=== PATIENT | female | born 1975 | race Caucasian/White ===

== ENCOUNTER 2019-08-25 22:25 | Emergency (ER) | payer OTHER ==
--- NOTE | 2019-08-25 23:01 | EDM.PDOC ---
ED HPI GENERAL MEDICAL PROBLEM - General Chief Complaint: Abdominal Pain Stated Complaint: ABD PAIN LT SIDE Time Seen by Provider: 08/25/19 22:45 Source of Information: Reports: Patient, RN History Limitations: Reports: No Limitations - History of Present Illness INITIAL COMMENTS - FREE TEXT/NARRATIVE: 44 yo female presents with about 3 hrs of LLQ abdominal pain. Pain was an 8/10 en route to the hospital, is now a 4/10. No fever. Normal BM's. No hematuria or dysuria. Has had C-sections x 2 and removal of a uterine cyst in the past as her only surgeries. Eating tonight didn't change her pain. Walking seems to make it worse, but not coughing. 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) left lower abd pain Pain Score (Numeric/FACES): 8 - Related Data Allergies Allergy/AdvReac Type Severity Reaction Status Date / Time No Known Allergies Allergy Verified 08/25/19 22:40 Home Meds: Home Meds Albuterol Sulfate [Albuterol Sulfate Hfa] 1 - 2 inh INH ASDIRECTED PRN 08/25/19 [History] Montelukast Sodium 10 mg PO BEDTIME 08/25/19 [History] Past Medical History HEENT History: Reports: Impaired Vision, Other (See Below) Other HEENT History: contacts Respiratory History: Reports: Asthma 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: , 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 (See Below) Other 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'S ASSISTANT History: cyst on ovaries - Infectious Disease History Infectious Disease History: Reports: Chicken Pox - Past Surgical History HEENT Surgical History: Reports: Tonsillectomy Female Surgical History: Reports: Breast Implant, Section, Cystectomy, Other (See Below) Other Female Surgeries/Procedures: 2007 cyst removed Social & Family History - Tobacco Use Smoking Status *Q: Never Smoker - Caffeine Use Caffeine Use: Reports: Coffee - Recreational Drug Use Recreational Drug Use: Yes Drug Use in Last 12 Months: Yes Recreational Drug Type: Reports: Marijuana/Hashish Recreational Drug Use Frequency: Rarely ED ROS GENERAL - Review of Systems Review Of Systems: See Below Constitutional: Reports: No Symptoms HEENT: Reports: No Symptoms Respiratory: Reports: No Symptoms Cardiovascular: Reports: No Symptoms GI/Abdominal: Reports: Abdominal Pain (LLQ). Denies: Black Stool, Bloody Stool, Constipation, Diarrhea, Decreased Appetite, Distension, Flatus, Hematemesis, Hematochezia, Melena, Nausea, Vomiting : Reports: No Symptoms Musculoskeletal: Reports: No Symptoms Skin: Reports: No Symptoms Neurological: Reports: No Symptoms Psychiatric: Reports: No Symptoms ED EXAM, GI/ABD - Physical Exam Exam: See Below Exam Limited By: No Limitations General Appearance: Alert, WD/WN, No Apparent Distress Eyes: Bilateral: Normal Appearance Ears: Normal External Exam, Normal Canal, Hearing Grossly Normal Nose: Normal Inspection, No Blood Throat/Mouth: Normal Inspection, Normal Lips, Normal Oropharynx, Normal Voice, No Airway Compromise Head: Atraumatic, Normocephalic Neck: Normal Inspection Respiratory/Chest: No Respiratory Distress, Lungs Clear, Normal Breath Sounds, No Accessory Muscle Use Cardiovascular: Regular Rate, Rhythm, No Edema GI/Abdominal Exam: Normal Bowel Sounds, Soft, Non-Tender, No Distention, Other (Pain is not worse via my exam). No: Distended, Guarding, Rigid, Rebound, Tender Back Exam: Normal Inspection. No: CVA Tenderness (R), CVA Tenderness (L) Extremities: Normal Inspection, Normal Range of Motion, Non-Tender, No Pedal Edema. No: Pedal Edema Neurological: Alert, Oriented, CN II-XII Intact, Normal Cognition, No Motor/Sensory Deficits Psychiatric: Normal Affect, Normal Mood Skin Exam: Warm, Dry, Intact, Normal Color, No Rash Course - Vital Signs Last Recorded V/S: Last Vital Signs Temp 36.1 C 08/25/19 22:37 Pulse 73 08/25/19 22:37 Resp 18 08/25/19 22:37 BP 119/80 08/25/19 22:37 Pulse Ox 100 08/25/19 22:37 - Orders/Labs/Meds Labs: Laboratory Tests 08/25/19 Range/Units 23:07 Urine Color Yellow (YELLOW) Urine Appearance Clear (CLEAR) Urine pH 6.0 (5.0-8.0) Ur Specific [place] 1.015 (1.008-1.030) Urine Protein Negative (NEGATIVE) mg/dL Urine Glucose (UA) Negative (NEGATIVE) mg/dL Urine Ketones Negative (NEGATIVE) mg/dL Urine Occult Blood Trace-lysed H (NEGATIVE) Urine Nitrite Negative (NEGATIVE) Urine Bilirubin Negative (NEGATIVE) Urine Urobilinogen 0.2 (0.2-1.0) EU/dL Ur Leukocyte Esterase Negative (NEGATIVE) Urine RBC 0-5 (0-5) Urine WBC 0-5 (0-5) Ur Epithelial Cells Not seen Amorphous Sediment Not seen Urine Bacteria Rare Urine Mucus Not seen Meds: Medications Discontinued Medications Generic Name Dose Route Start Last Admin Trade Name Freq PRN Reason Stop Dose Admin Acetaminophen 1,000 mg 08/25/19 23:08 08/25/19 23:13 Tylenol Extra Strength PO 08/25/19 23:09 1,000 mg ONETIME ONE Administration - Radiology Interpretation Free Text/Narrative:: IMPRESSION: No evidence for diverticulitis. No urinary tract stones or hydronephrosis. No definitive findings to explain the patient`s left lower quadrant pain. Dictated by Jhonny Guzmán MD @ 08/26/2019 12:35:[address] abd/pelvis without contrast- CT Results Date: 08/25/19 CT Results Time: 00:36 Departure - Departure Time of Disposition: 00:45 Disposition: Home, Self-Care 01 Condition: Fair Clinical Impression: Nonspecific abdominal pain - Discharge Information *PRESCRIPTION DRUG MONITORING PROGRAM REVIEWED*: Not Applicable *COPY OF PRESCRIPTION DRUG MONITORING REPORT IN PATIENT SANDRO: Not Applicable Instructions: Abdominal Pain, Adult, [id number] Referrals: Milagros Watson PA [Primary Care Provider] - Forms: ED Department Discharge Additional Instructions: Take acetaminophen 1000 mg every 6 hrs as needed for pain relief. Add simethicone 160 mg every 4 hrs as needed for pain relief. Recheck if pain is worse or fever or bleeding occurs. Sepsis Event Note (ED) - Evaluation Sepsis Screening Result: No Definite Risk - Focused Exam Vital Signs: Vital Signs Temp Pulse Resp BP Pulse Ox 08/25/19 22:37 36.1 C 73 18 119/80 100 08/25/19 22:36 36.1 C 73 18 119/80 100
[2019-08-25] MEDS ORDERED: Acetaminophen 500 MG Tab PO ONE (23:08)
--- NOTE | 2019-08-26 00:36 | CRLCT ---
INDICATION: Left lower quadrant pain TECHNIQUE: CT abdomen and pelvis without contrast. COMPARISON: None FINDINGS: Lower chest: Unremarkable. Liver: Unremarkable. Spleen: Unremarkable. Pancreas: Unremarkable. Gallbladder and bile ducts: Unremarkable. Kidneys: Unremarkable. No kidney or ureteral stones and no hydronephrosis. Adrenal glands: Unremarkable. GI tract: Unremarkable. Appendix is normal. Vascular structures: Unremarkable. Lymph nodes: Unremarkable. Miscellaneous: Unremarkable. No free air or significant free fluid. Pelvic Organs: Unremarkable. Bones: Unremarkable for age. IMPRESSION: No evidence for diverticulitis. No urinary tract stones or hydronephrosis. No definitive findings to explain the patient`s left lower quadrant pain. Dictated by Jhonny Guzmán MD @ 08/26/2019 12:35:21 AM Please note that all CT scans at this facility use dose modulation, iterative reconstruction, and/or weight-based dosing when appropriate to reduce radiation dose to as low as reasonably achievable. Dictated by: Jhonny Guzmán MD @ 08/26/2019 00:35:39 (Electronically Signed)
[2019-08-26] MEDS ORDERED: Simethicone 80 MG Tab.Chew PO ONE (00:39)
== END 2019-08-26 00:51 | disposition home or self-care (01) ==
LOC: JP.ED 22:25
DX: R10.32 Left lower quadrant pain (principal); J45.909 Unspecified asthma, uncomplicated
CPT/HCPCS: 74176; 81001; 99284; A9270

== ENCOUNTER 2020-08-11 15:34 | Emergency (ER) | payer OTHER ==
--- NOTE | 2020-08-11 17:21 | EDM.PDOC ---
ED HPI GENERAL MEDICAL PROBLEM - General Chief Complaint: Upper Extremity Injury/Pain Stated Complaint: FINGER SMASHED AT WORK Time Seen by Provider: 08/11/20 16:50 Source of Information: Reports: Patient, Provider History Limitations: Reports: No Limitations - History of Present Illness INITIAL COMMENTS - FREE TEXT/NARRATIVE: Patient smashed finger 2 days ago in a door. Swelling at the end of index finger on the left hand is purple with a very dark nailbed. Small amounts of clear liquid is leaking out below the nail due to the pressure. Patient would like to have the pressure relieved if at all possible. Nothing she seems to do at home is working. She is tried ice, elevation. She is also tried Tylenol. 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 Finger-Index Pain Score (Numeric/FACES): 5 - Related Data Allergies Allergy/AdvReac Type Severity Reaction Status Date / Time No Known Allergies Allergy Verified 08/11/20 15:57 Home Meds: Home Meds Albuterol Sulfate [Albuterol Sulfate Hfa] 1 - 2 inh INH ASDIRECTED PRN 08/25/19 [History] Montelukast Sodium 10 mg PO BEDTIME 08/25/19 [History] Fluticasone/Salmeterol [Fluticasone-Salmeterol 232-14 MCG Powder Inha] 1 puff INH BID 08/11/20 [History] Past Medical History HEENT History: Reports: Impaired Vision, Other (See Below) Other HEENT History: contacts Respiratory History: Reports: Asthma 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: , Other (See Below) 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: cyst on ovaries - Infectious Disease History Infectious Disease History: Reports: Chicken Pox - Past Surgical History HEENT Surgical History: Reports: Tonsillectomy Female Surgical History: Reports: Breast Implant, Section, Cystectomy, Other (See Below) Other Female Surgeries/Procedures: 2008 cyst removed Social & Family History - Tobacco Use Tobacco Use Status *Q: Never Tobacco User - Caffeine Use Caffeine Use: Reports: Coffee Review of Systems - Review of Systems Review Of Systems: See Below Constitutional: Reports: No Symptoms Musculoskeletal: Reports: Joint Swelling (Distal metacarpal joint on second digit left hand) Skin: Reports: Erythema, Wound (Bruising distal metacarpal second finger left hand), Change in Color Neurological: Reports: No Symptoms ED EXAM, GENERAL - Physical Exam Exam: See Below Exam Limited By: No Limitations General Appearance: Alert, Moderate Distress Respiratory/Chest: No Respiratory Distress, Lungs Clear, Normal Breath Sounds, No Accessory Muscle Use, Chest Non-Tender Cardiovascular: Normal Peripheral Pulses, Regular Rate, Rhythm, No Edema Extremities: Joint Swelling (Distal metacarpal joint index finger left hand) Neurological: Alert, Oriented, CN II-XII Intact, Normal Cognition, Normal Gait Psychiatric: Normal Affect, Normal Mood Skin Exam: Warm, Erythema Course - Vital Signs Last Recorded V/S: Last Vital Signs Temp 36.7 C 08/11/20 15:55 Pulse 77 08/11/20 15:55 Resp 16 08/11/20 15:55 BP Pulse Ox 99 08/11/20 15:55 - Re-Assessments/Exams Free Text/Narrative Re-Assessment/Exam: 08/11/20 17:21 Use of cautery to the nailbed of second digit left hand to help relieve pressure. Small amounts of clear fluid was released. Pressure remains. Patient does feel some relief. Patient encouraged to use Epson salt soak well cautery area or open on the back of her fingernail to help draw out any remaining fluid if possible. Patient instructed to keep index finger above her heart to help reduce swelling, may use ibuprofen at 800 mg strength 3 times a day for the next 2 to 3 days to promote decreased inflammation and pressure of the finger. Patient may lose fingernail. 08/11/20 17:26 Departure - Departure Time of Disposition: 17:46 Disposition: Home, Self-Care 01 Condition: Fair Clinical Impression: Fingernail injury - Discharge Information *PRESCRIPTION DRUG MONITORING PROGRAM REVIEWED*: Not Applicable *COPY OF PRESCRIPTION DRUG MONITORING REPORT IN PATIENT SANDRO: Not Applicable Instructions: Crush Injury of the Hand Referrals: Milagros Watson PA [Primary Care Provider] - Forms: ED Department Discharge Additional Instructions: Keep extremity elevated above heart to prevent increased pressure of the finger. May soak in Epson salt to help dry out inflammation. May use 800 mg strength ibuprofen 3 times a day for the next 3 days. Care Plan Goals: Pain management Sepsis Event Note (ED) - Evaluation Sepsis Screening Result: No Definite Risk - Focused Exam Vital Signs: Vital Signs Temp Pulse Resp Pulse Ox 08/11/20 15:55 36.7 C 77 16 99 - Assessment/Plan Assessment:: Crush injury of index finger left hand status post cautery to relieve pressure of index finger. Patient tolerated procedure well without difficulty Plan: Pain management
== END 2020-08-11 17:46 | disposition home or self-care (01) ==
LOC: JP.ED 15:34
DX: S67.191A Crushing injury of left index finger, initial encounter (principal); J45.909 Unspecified asthma, uncomplicated; Z79.899 Other long term (current) drug therapy; W23.0XXA Caught, crushed, jammed, or pinched between moving objects, initial encounter; Y92.89 Other specified places as the place of occurrence of the external cause; Y99.0 Civilian activity done for income or pay
CPT/HCPCS: 11740; 99282; 99283-25

== ENCOUNTER 2024-06-16 07:41 | Day surgery (SDC) | payer OTHER ==
[~2024-06-16 07:41] MED LIST: Midazolam 1 MG/ML 2 ML SDV ONE; Propofol 200 MG/20 ML SDV ONE; fentaNYL 100 MCG/2 ML SDV ONE
[2024-06-16] MEDS: Lactated Ringers 1,000 ML IV SCH (08:29)
== END 2024-06-16 10:13 | disposition home or self-care (01) ==
LOC: JP.SDS 07:41
PROVIDERS: ATTEND Surgery
DX: R10.9 Unspecified abdominal pain (principal); K21.9 Gastro-esophageal reflux disease without esophagitis; J45.909 Unspecified asthma, uncomplicated
CPT/HCPCS: 00813; 43239; 45378; 81025; 88305; J2250; J2704; J3010; J7120